=== PATIENT | female | born 1980 ===

== ENCOUNTER 2017-05-05 20:07 | Emergency (ER) | payer BC, OTHER ==
[2017-05-05 20:36] VITALS: RESP 20
--- NOTE | 2017-05-05 21:02 | C.PDOC ---
History Of Present Illness 37 year old female presents to the ED with complaints of suprapubic pain beginning Tuesday. Patient notes associated symptoms of nausea, hematuria, dysuria, and frequent urination. She states she has had a tubal ligation and history of Diabetes but is not taking medication. Patient denies fever or vomiting. States symptoms similar to previous UTIs. Time Seen by Provider: 05/05/17 20:39 Chief Complaint (Nursing): Abdominal Pain History Per: Patient History/Exam Limitations: no limitations Onset/Duration Of Symptoms: Days (6 days ago on Tuesday) Current Symptoms Are (Timing): Still Present Location Of Pain/Discomfort: Suprapubic Associated Symptoms: Chills, Nausea, Back Pain, Urinary Symptoms. denies: Fever , Vomiting, Diarrhea Recent travel outside of the [place]: No Past Medical History Reviewed: Historical Data, Nursing Documentation, Vital Signs Vital Signs: Last Vital Signs Temp 98.2 F 05/05/17 22:14 Pulse 83 05/05/17 22:14 Resp 20 05/05/17 22:14 BP 120/83 05/05/17 22:14 Pulse Ox 97 05/05/17 22:14 Family History: States: Unknown Family Hx - Social History Hx Alcohol Use: No Hx Substance Use: No - Immunization History Hx Tetanus Toxoid Vaccination: No Hx Influenza Vaccination: No Review Of Systems Review Of Systems: ROS cannot be obtained secondary to pt's inabilty to answer questions. Constitutional: Negative for: Fever Respiratory: Negative for: Shortness of Breath Physical Exam - Physical Exam Additional Physical Exam Comments: Constitutional: No acute distress. Head: Normocephalic. Atraumatic. Eyes: PERRL. ENT: Moist mucous membranes. Neck: Supple. Cardiovascular: Regular rate. Radial pulse 2+ bilaterally. Chest: No tenderness. Respiratory: Clear to auscultation bilaterally. GI: Soft. Suprapubic tenderness. Nondistended. Back: Left CVA tenderness. Musculoskeletal: No tenderness or swelling of extremities. Skin: No rash. Neurologic: Alert, no focal deficit. ED Course And Treatment O2 Sat by Pulse Oximetry: 99 (room air ) Medical Decision Making Medical Decision Making: Vital signs normal. UTI on UA. Culture sent. Cipro and pyridium administered. Discharged home, f/u PMD, instructed to return for fever, vomiting, worsening pain, palpitations. Disposition - Disposition Disposition: HOME/ ROUTINE Disposition Time: 22:00 Condition: STABLE Prescriptions: Ciprofloxacin [Cipro] 500 mg PO BID #14 tab Phenazopyridine [Pyridium] 1 tab PO Q8 #6 tab Instructions: Urinary Tract Infection in Women (ED) - Clinical Impression Clinical Impression: UTI (urinary tract infection) - Scribe Statement The provider has reviewed the documentation as recorded by the Trentibcarisa Nayak All medical record entries made by the Stephen were at my direction and personally dictated by me. I have reviewed the chart and agree that the record accurately reflects my personal performance of the history, physical exam, medical decision making, and the department course for this patient. I have also personally directed, reviewed, and agree with the discharge instructions and disposition.
[2017-05-05 21:34] LABS: RBC URINE 6 /hpf (0-3); URINE BACTERIA MANY (<OCC); URINE BILIRUBIN NEGATIVE (NEGATIVE); URINE COLOR Yellow (YELLOW); URINE GLUCOSE (UA) 3+ mg/dL (Normal); URINE KETONE NEGATIVE (NEGATIVE); URINE LEUKOCYTE ESTERASE 3+ Leu/uL (Negative); URINE PROTEIN 1+ mg/dL (NEGATIVE); URINE UROBILINOGEN NORMAL mg/dL (0.2-1.0); WBC CLUMPS FEW /hpf; WBC URINE 362 /hpf (0-5)
[2017-05-05 21:49] LABS: URINE BLOOD 1+ (NEGATIVE)
[2017-05-05 22:15] VITALS: BP 120/83; PULSE 83; TEMP 98.2
[2017-05-05 22:40] VITALS: O2SAT 99
== END 2017-05-05 22:40 | disposition home or self-care (01) ==
LOC: C.ER 20:07
DX: N39.0 Urinary tract infection, site not specified (principal)

== ENCOUNTER 2017-07-24 11:52 | Emergency (ER) | payer BC, OTHER ==
--- NOTE | 2017-07-24 13:14 | C.PDOC ---
History Of Present Illness 37y/o female presents to the ED for evaluation of constant, atraumatic right breast pain for the past 3 days. Patient reports she has been taking Tylenol and Excedrin for pain with no relief. She denies breast feeding and states her LMP ended 2 days ago. She denies any associated fever or chills and at present offers no additional medical complaints. Time Seen by Provider: 07/24/17 12:40 Chief Complaint (Nursing): Breast Problem History Per: Patient History/Exam Limitations: no limitations Onset/Duration Of Symptoms: Days (2) Current Symptoms Are (Timing): Still Present Severity: Moderate Recent travel outside of the [place]: No Additional History Per: Patient Past Medical History Reviewed: Historical Data, Nursing Documentation, Vital Signs Vital Signs: Last Vital Signs Temp 97.8 F 07/24/17 14:39 Pulse 88 07/24/17 14:39 Resp 20 07/24/17 14:39 BP 125/86 07/24/17 14:39 Pulse Ox 97 07/24/17 17:44 - Medical History PMH: Diabetes Surgical History: No Surg Hx Family History: States: Unknown Family Hx, Other Other Family History: Patient's aunt had mastectomy - Social History Hx Alcohol Use: No Hx Substance Use: No - Immunization History Hx Tetanus Toxoid Vaccination: No Hx Influenza Vaccination: No Hx Pneumococcal Vaccination: No Review Of Systems Constitutional: Negative for: Fever, Chills Cardiovascular: Positive for: Other (right breast pain) Physical Exam - Physical Exam Additional Physical Exam Comments: Constitutional: No acute distress. WDWN. Head: Normocephalic. Atraumatic. Cardiovascular: Regular rate and rhythm. Chest: No tenderness. Right breast left upper quadrant (10:00 region) with firm mass noted. No redness, swelling or warmth to breast. No nipple discharge or discoloration. Respiratory: Clear to auscultation bilaterally. Musculoskeletal: No tenderness or swelling of extremities. No adenopathy noted in right axilla. Skin: No rash. Neurologic: Alert, no focal deficit. ED Course And Treatment O2 Sat by Pulse Oximetry: 97 - CT Scan/US US Right Breast CT/US Interpretation: US Impression: At the 10:00 region, 3cm from nipple there is a hypoechoic 6x4x4 mm complex mass. Diagnostic mammogram recommended. Medical Decision Making Medical Decision Making: Impression: 37y/o female, not breast feeding, with right breast pain unrelieved with use of Tylenol and Excedrin for the past 3 days. Impression: -- US right breast -- POC UPreg 1323 -- UPreg negative; Motrin 600 mg PO ordered. Disposition Counseled Patient/Family Regarding: Studies Performed, Diagnosis, Need For Followup - Disposition Referrals: Margie Ash MD [Staff Provider] - Disposition: HOME/ ROUTINE Disposition Time: 17:54 Condition: STABLE Additional Instructions: Follow up with Dr Ash and your dental nurse as soon as possible. Recommend that you get a mammogram to evaluate breast mass. Return to ER for any worsening symptoms. Take Tylenol or Motrin for pain. 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 - Scribe Statement The provider has reviewed the documentation as recorded by the Scribe Sobia Frazier All medical record entries made by the Scribe were at my direction and personally dictated by me. I have reviewed the chart and agree that the record accurately reflects my personal performance of the history, physical exam, medical decision making, and the department course for this patient. I have also personally directed, reviewed, and agree with the discharge instructions and disposition.
[2017-07-24 18:05] VITALS: BP 129/89; PULSE 83; RESP 18; TEMP 98.5
[2017-07-25 09:41] VITALS: O2SAT 97
--- NOTE | 2017-07-25 09:59 | US ---
HISTORY: 37Y old female with history of left breast tender palpable abnormality. COMPARISON: None available. TECHNIQUE: BREAST UNILATERAL RIGHT Title of breasts was performed all 4 quadrants including retroareolar acted tail components is history of palpable abnormality at the left 10 o'clock position approximately. FINDINGS: LEFT BREAST: There is a hypoechoic nodular focus with echogenic core and hypoechoic periphery E with no posterior acoustic shadowing associated at the 10 o'clock radius identified at the site of the patient's palpable abnormality, measuring 0.4 x 0.4 x 0.6 cm. Is aligned parallel to the plane of the skin and exhibits limited posterior acoustic enhancement rather than shadowing. No additional findings seen throughout the remaining quadrants of the right breast including retroareolar space. This may represent a benign intramammary lymph node typically given its echogenic core. It is avascular on color per ultrasound however. Correlation with mammography is advised including bilateral screening technique the patient has not been screened within the past year with added left lateral medial and possible spot compression mammography. Mildly enlarged left axilla lymph nodes identified measure 1.4 by 0.7 cm. IMPRESSION: A 0.6 cm nodular focus is identified at the left 10 o'clock radius 3 cm from the nipple potentially representing a and benign intrarenal lymph node. Follow-up mammography is advised as discussed above for further characterization as this is an indeterminate finding nevertheless. Please see discussion above. Concordant V rad report dated 07/24/2017. BIRAD: BIRADS 0 Incomplete - Need additional imaging evaluation and/or prior mammograms for comparison Recommendation: Recall for additional imaging and/or comparison with prior examination, as described above. Patient will be contacted.
== END 2017-07-24 18:04 | disposition home or self-care (01) ==
LOC: C.ER 11:52
DX: N64.4 Mastodynia (principal); N63 Unspecified lump in breast

== ENCOUNTER 2017-10-19 08:51 | Emergency (ER) | payer BC, OTHER ==
[2017-10-19 09:09] VITALS: RESP 18; O2SAT 98
[2017-10-19 09:18] VITALS: BP 120/84; PULSE 90; TEMP 98.2
--- NOTE | 2017-10-19 09:30 | C.PDOC ---
History Of Present Illness Lory Nowak is a 37 y/o female who presents complaining of urticarial rash to the forehead, face, and neck, onset 5 days ago. Mild pruritus noted. She uses the same hair dye as in the past, and denies using any new products. Taking Claritin without improvement. No fevers, chills, nausea, vomiting, or respiratory complaints. PMD: Dr. Kaylynn Melton MD Time Seen by Provider: 10/19/17 09:22 Chief Complaint (Nursing): Allergic Reaction History Per: Patient History/Exam Limitations: no limitations Onset/Duration Of Symptoms: Days (x 5) Current Symptoms Are (Timing): Still Present Associated Symptoms: Skin Rash Past Medical History Reviewed: Historical Data, Nursing Documentation, Vital Signs Vital Signs: Last Vital Signs Temp 98.2 F 10/19/17 09:17 Pulse 90 10/19/17 09:17 Resp 18 10/19/17 09:17 BP 120/84 10/19/17 09:17 Pulse Ox 98 10/19/17 15:35 - Medical History PMH: Diabetes Surgical History: Other Surgeries: Tubal ligation Family History: States: Unknown Family Hx - Social History Hx Alcohol Use: No Hx Substance Use: No - Immunization History Hx Tetanus Toxoid Vaccination: No Hx Influenza Vaccination: No Hx Pneumococcal Vaccination: No Review Of Systems Except As Marked, All Systems Reviewed And Found Negative. Constitutional: Negative for: Fever, Chills Respiratory: Negative for: Shortness of Breath Gastrointestinal: Negative for: Nausea, Vomiting Skin: Positive for: Rash (to face, forehead, neck) Physical Exam - Physical Exam Appears: Non-toxic, No Acute Distress Skin: Rash (Urticarial rash noted to forehead, face, and neck) Head: Atraumatic, Normacephalic Eye(s): bilateral: Normal Inspection, PERRL, EOMI Neck: Normal, Supple Cardiovascular: Rhythm Regular, No Murmur Respiratory: Normal Breath Sounds, No Accessory Muscle Use Neurological/Psych: Oriented x3, Normal Speech ED Course And Treatment O2 Sat by Pulse Oximetry: 98 (RA) Pulse Ox Interpretation: Normal Medical Decision Making Medical Decision Making: Time: 9:32 Clinical Impression: Allergic urticaria Plan: Patient is medically stable. Will d/c with Rx for Benadryl and prednisone. Patient is to follow up with PMD for further assessment. There is agreement to discharge plan. Return to ER if symptoms worsen or acute changes develop. Disposition Counseled Patient/Family Regarding: Diagnosis, Need For Followup, Rx Given - Disposition Referrals: Kaylynn Melton MD [Staff Provider] - Disposition: HOME/ ROUTINE Disposition Time: 09:30 Condition: STABLE Prescriptions: DiphenhydrAMINE [Benadryl] 50 mg PO TID #15 cap predniSONE [predniSONE Tab] 60 mg PO DAILY #15 tab Instructions: General Allergic Reaction (ED) Forms: General Discharge Instructions, [facility] (Telugu), Work Excuse - POA Present On Arrival: None - Clinical Impression Clinical Impression: Allergic urticaria - Scribe Statement The provider has reviewed the documentation as recorded by the Scribe (Azalea Maravilla) All medical record entries made by the Scribe were at my direction and personally dictated by me. I have reviewed the chart and agree that the record accurately reflects my personal performance of the history, physical exam, medical decision making, and the department course for this patient. I have also personally directed, reviewed, and agree with the discharge instructions and disposition.
== END 2017-10-19 09:55 | disposition home or self-care (01) ==
LOC: C.ER 08:51
DX: L50.0 Allergic urticaria (principal)

== ENCOUNTER 2017-12-06 09:01 | Emergency (ER) | payer BC, OTHER ==
[2017-12-06 09:14] VITALS: RESP 18
--- NOTE | 2017-12-06 09:36 | C.PDOC ---
History Of Present Illness R BUTTOCK ABSCESS SINCE YEST. HO DM, PS HO PRIOR SIM SX BUT IN DIFFERENT LOCATION. +REDNESS, PAIN, SWELLING. +SUBJ FEVER. SP EXCEDRIN @ 0330 EXAM MILD DIST NONTOXIC SKIN +DIFFUSE FIRM INDURATED AREA BOTTOM R BUTTOCK W DIFFUSE TEND. IN TACT. _ ERYTHEMA CV RRR SINUS TACH REMAINDER NEG Time Seen by Provider: 12/06/17 09:32 Chief Complaint (Nursing): Abnormal Skin Integrity History Per: Patient History/Exam Limitations: no limitations Onset/Duration Of Symptoms: Days (1 day) Current Symptoms Are (Timing): Still Present Past Medical History Reviewed: Historical Data, Nursing Documentation, Vital Signs Vital Signs: Last Vital Signs Temp 99.2 F 12/06/17 13:10 Pulse 97 H 12/06/17 13:10 Resp 18 12/06/17 13:10 BP 102/67 12/06/17 13:10 Pulse Ox 97 12/06/17 13:10 - Medical History PMH: Diabetes Surgical History: Family History: States: No Known Family Hx - Social History Hx Alcohol Use: No Hx Substance Use: No - Immunization History Hx Tetanus Toxoid Vaccination: No Hx Influenza Vaccination: No Hx Pneumococcal Vaccination: No Review Of Systems Except As Marked, All Systems Reviewed And Found Negative. Constitutional: Positive for: Fever (subjective) Musculoskeletal: Negative for: Back Pain, Leg Pain Skin: Positive for: Other ((+) abscess on the right buttock with redness and swelling) Neurological: Negative for: Weakness, Numbness Physical Exam - Physical Exam Appears: Non-toxic, In Acute Distress (Mild) Skin: Warm, Dry, No Rash, Other ((+) Diffuse, firm, indurated are martha the bottom right buttock with diffuse tenderness, intact) Oral Mucosa: Moist Cardiovascular: Rhythm Regular, Other ((+) sinus tach) Respiratory: Normal Breath Sounds, No Rales, No Wheezing Back: Normal Inspection, No CVA Tenderness Extremity: Normal ROM, No Swelling Neurological/Psych: Oriented x3, Normal Speech, Normal Motor, Normal Sensation Gait: Steady ED Course And Treatment - Laboratory Results Result Diagrams: 12/06/17 10:06 12/06/17 10:06 O2 Sat by Pulse Oximetry: 99 (RA) Pulse Ox Interpretation: Normal - CT Scan/US CT - Pelvis w/ IV Contrast Other Rad Studies (CT/US): Read By Radiologist, Radiology Report Reviewed CT/US Interpretation: PROCEDURE: CT Pelvis with contrast. HISTORY: R BUTTOCK SWELL RED RO ABSCESS. COMPARISON: None. TECHNIQUE: Contiguous axial images of the pelvis with contrast. Coronal and sagittal reformats generated. Contrast dose: 100 mL Visipaque 320. Radiation dose: Total exam DLP = 709 mGy- cm. This CT exam was performed using one or more of the following dose reduction techniques: Automated exposure control, adjustment of the mA and/or kV according to patient size, and/or use of iterative reconstruction technique. FINDINGS: BLADDER: Unremarkable. No mass. REPRODUCTIVE ORGANS: Unremarkable. VISUALIZED BOWEL: Unremarkable. PERITONEUM: Unremarkable, as visualized. No free fluid. No free air. LYMPH NODES: no enlarged intra pelvic lymph nodes. VASCULATURE: Unremarkable. BONES: No fracture or focal lytic lesion. Lumbosacral level transitional elements suggested. 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 OTHER FINDINGS: In the inferior right gluteal soft tissues, asymmetrical right dermal thickening with diffuse right subcutaneous fat amorphous inflammatory/edema changes are present. A few sub cm subdermal nodular opacities here are noted - tiny subdermal inflammatory nodules / subdermal lymph nodes are some considerations. No drainable abscess here suggested. No find focal collection greater than 1 cm in size noted. IMPRESSION : Inferior right buttock dermal and diffuse extensive reticular and amorphous subcutaneous inflammatory changes. No drainable or discrete abscess suggested. No fistula or gross sinus tract appreciated. The few sub cm subdermal nodules noted are consistent with nonspecific inflammatory nodules and/or subdermal lymph nodes. No drainable. collection here identified . Progress - Re-Evaluation Re-evaluation Note: 12/06/17 13:[address] RESULTS REVIEWED. PS CURRENTLY NOT ON REGULAR DM MEDS. HO GESTATION DM. 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 ABX - Data Reviewed Data Reviewed: Lab, Diagnostic imaging, Old records Medical Decision Making Medical Decision Making: PLAN: * CT - Pelvis w/ IV Contrast * Labs * POC * Toradol IVP Disposition Counseled Patient/Family Regarding: Studies Performed, Diagnosis, Need For Followup, Rx Given - Disposition Referrals: YOUR,PMD [Other] Disposition: HOME/ ROUTINE Disposition Time: 13:21 Condition: IMPROVED Prescriptions: Acetaminophen with Codeine [Tylenol with Codeine No. 3 300 mg-30 mg] 1 tab PO Q6 PRN #12 tab PRN Reason: Pain, Moderate (4-7) Amoxicillin/Clavulanate [Augmentin 875 MG-125 MG] 1 tab PO BID #14 tab Ibuprofen [Motrin] 600 mg PO Q6 #30 tab metFORMIN [glucOPHAGE] 500 mg PO BID #28 tab Instructions: Cellulitis (ED), Diabetes Mellitus Type 2 in Adults (ED) Forms: [facility] (Yemeni) - Clinical Impression Clinical Impression: Cellulitis, Uncontrolled diabetes mellitus - Scribe Statement The provider has reviewed the documentation as recorded by the Stephen Gan Provider Attestation: All medical record entries made by the Stephen were at my direction and personally dictated by me. I have reviewed the chart and agree that the record accurately reflects my personal performance of the history, physical exam, medical decision making, and the department course for this patient. I have also personally directed, reviewed, and agree with the discharge instructions and disposition.
[2017-12-06 10:16] LABS: BASO # 0.1 K/uL (0.0-0.2); EOS % 0.4 % (0.0-4.0); LYMPH # 1.7 K/uL (1.0-4.3); LYMPH % 13.7 % (20.0-40.0); MEAN CELL VOLUME 82.7 fL (81.0-99.0); MEAN CORPUSCULAR HGB CONC 35.1 g/dL (33.0-37.0); MEAN PLATELET VOLUME 8.8 fL (7.2-11.7); MONO # 0.8 K/uL (0.0-0.8); MONO % 5.9 % (0.0-10.0); NEUT # 10.1 K/uL (1.8-7.0); RBC 4.48 Mil/uL (3.80-5.20); RED CELL DISTRIBUTION WIDTH 12.4 % (11.5-14.5); WHITE BLOOD COUNT 12.8 K/uL (4.8-10.8)
[2017-12-06 10:31] LABS: BLOOD UREA NITROGEN 8 mg/dL (7-17); CALCIUM 9.3 mg/dl (8.6-10.4); GFR AFRICAN-AMERICAN > 60; GFR NON-AFRICAN AMERICAN > 60
[2017-12-06] MEDS ORDERED: Iodixanol 320 MG/ML 100 ML BOTTLE IV ONE (10:50)
--- NOTE | 2017-12-06 12:55 | CT ---
PROCEDURE: CT Pelvis with contrast HISTORY: R BUTTOCK SWELL RED RO ABSCESS COMPARISON: None. TECHNIQUE: Contiguous axial images of the pelvis with contrast. Coronal and sagittal reformats generated. Contrast dose: 100 mL Visipaque 320 Radiation dose: Total exam DLP = 709 mGy-cm. This CT exam was performed using one or more of the following dose reduction techniques: Automated exposure control, adjustment of the mA and/or kV according to patient size, and/or use of iterative reconstruction technique. FINDINGS: BLADDER: Unremarkable. No mass. REPRODUCTIVE ORGANS: Unremarkable. VISUALIZED BOWEL: Unremarkable. PERITONEUM: Unremarkable, as visualized. No free fluid. No free air. LYMPH NODES: no enlarged intra pelvic lymph nodes. VASCULATURE: Unremarkable. BONES: No fracture or focal lytic lesion. Lumbosacral level transitional elements suggested. 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 A few sub cm subdermal nodular opacities here are noted - tiny subdermal inflammatory nodules /subdermal lymph nodes are some considerations. No drainable abscess here suggested. No find focal collection greater than 1 cm in size noted. IMPRESSION: Inferior right buttock dermal and diffuse extensive reticular and amorphous subcutaneous inflammatory changes. No drainable or discrete abscess suggested. No fistula or gross sinus tract appreciated. The few sub cm subdermal nodules noted are consistent with nonspecific inflammatory nodules and/or subdermal lymph nodes. No drainable collection here identified .
[2017-12-06] MEDS ORDERED: Amoxicillin-Clav 875-125 mg Tab PO STA (13:20)
[2017-12-06 13:23] VITALS: O2SAT 99
[2017-12-06 13:24] VITALS: BP 114/75; PULSE 98; TEMP 98.5
[2017-12-06] MEDS ORDERED: Amoxicillin-Clav 875-125 mg Tab PO ONE (13:24)
== END 2017-12-06 13:33 | disposition home or self-care (01) ==
LOC: C.ER 09:01
DX: L03.317 Cellulitis of buttock (principal); E11.65 Type 2 diabetes mellitus with hyperglycemia
CPT/HCPCS: 72193; 80048; 85025; 96374; 99285; J1885; Q9967

== ENCOUNTER 2017-12-10 22:10 | Emergency (ER) | payer BC, OTHER ==
[2017-12-10 22:33] VITALS: BMI 29.1
[2017-12-10 22:37] VITALS: RESP 18; TEMP 99.3; O2SAT 100
--- NOTE | 2017-12-10 23:05 | C.PDOC ---
History Of Present Illness Patient complains of pain, itching and swelling to right buttocks for 4 days. Patient states she was seen in ED 4 days ago and is taking antibiotics. She states she squeezed the area yesterday and it started draining. Denies any fever , area is still painful. Time Seen by Provider: 12/10/17 22:46 Chief Complaint (Nursing): Abnormal Skin Integrity History Per: Patient History/Exam Limitations: no limitations Onset/Duration Of Symptoms: Days (4) Current Symptoms Are (Timing): Still Present Past Medical History Reviewed: Historical Data, Nursing Documentation, Vital Signs Vital Signs: Last Vital Signs Temp 99.3 F 12/10/17 22:33 Pulse 93 H 12/10/17 22:33 Resp 18 12/10/17 22:33 BP 154/82 H 12/10/17 22:33 Pulse Ox 100 12/10/17 23:05 - Medical History PMH: Diabetes Surgical History: Family History: States: Unknown Family Hx - Social History Hx Alcohol Use: No Hx Substance Use: No - Immunization History Hx Tetanus Toxoid Vaccination: No Hx Influenza Vaccination: No Hx Pneumococcal Vaccination: No Review Of Systems Except As Marked, All Systems Reviewed And Found Negative. Skin: Positive for: Other (buttock abscess) Physical Exam - Physical Exam Appears: Well, Non-toxic, No Acute Distress Skin: Warm, Dry, Other (right inner buttocks with erythematous tender indurated mass with slight fluctuant center and mild purulent drainage noted ) Head: Atraumatic, Normacephalic Eye(s): bilateral: Normal Inspection, EOMI Neck: Normal ROM Chest: Symmetrical Extremity: Bilateral: Atraumatic, Normal ROM Neurological/Psych: Oriented x3, Normal Speech ED Course And Treatment O2 Sat by Pulse Oximetry: 100 Medical Decision Making Medical Decision Making: Patient with abscess to right buttock which is actively draining. Offer to make larger incision and drain. She declines. Area cleansed and dressing applied. Patient advised to continue and finish antibiotics Disposition Counseled Patient/Family Regarding: Diagnosis, Need For Followup, Rx Given - Disposition Referrals: Kaylynn Melton MD [Staff Provider] - Disposition: HOME/ ROUTINE Disposition Time: 23:01 Condition: STABLE Additional Instructions: Continue with antibiotics and take pain medicine as needed try sitz baths and applying warm compress to area and it will continue to drain Instructions: Abscess (GEN) Forms: [facility] (German) - POA Present On Arrival: None - Clinical Impression Clinical Impression: Abscess of buttock, right
[2017-12-10 23:35] VITALS: BP 149/89; PULSE 89
== END 2017-12-10 23:35 | disposition home or self-care (01) ==
LOC: C.ER 22:10
DX: L02.31 Cutaneous abscess of buttock (principal)

== ENCOUNTER 2017-12-17 11:25 | Observation (INO) | payer BC, OTHER ==
[2017-12-17 11:25] VITALS: BMI 29.1
[2017-12-17] MEDS ORDERED: HYDROmorphone 0.5 mg/0.5 ml ISec IM STA (11:50)
--- NOTE | 2017-12-17 11:52 | C.PDOC ---
History Of Present Illness WORSENING L BUTTOCK PAIN, SWELLING DC. SEEN ON 12/07 AND 12/10 FOR SAME, S/P CT AND ABX. NO FEVER. INCR PAIN, NO IMPROVE W PAIN MEDS. COMPLETED ABX PRESCRIBED. EXAM MOD DIST NONTOXIC SKIN +SWELLING, REDNESS TEND L BUTTOCK INCR COMPARED TO INITIAL EVAL 12/07; + SEROPURULENT DC W SMALL DRAINING HOLE REMAINDER NEG Time Seen by Provider: 12/17/17 11:49 Chief Complaint (Nursing): Abnormal Skin Integrity History Per: Patient History/Exam Limitations: no limitations Onset/Duration Of Symptoms: Days Past Medical History Reviewed: Historical Data, Nursing Documentation, Vital Signs Vital Signs: Last Vital Signs Temp 98.9 F 12/17/17 11:36 Pulse 143 H 12/17/17 11:36 Resp 22 12/17/17 11:36 BP 161/98 H 12/17/17 11:36 Pulse Ox 100 12/17/17 12:01 - Medical History PMH: Diabetes Surgical History: Family History: States: No Known Family Hx - Social History Hx Alcohol Use: No Hx Substance Use: No - Immunization History Hx Tetanus Toxoid Vaccination: No Hx Influenza Vaccination: No Hx Pneumococcal Vaccination: No Review Of Systems Except As Marked, All Systems Reviewed And Found Negative. Constitutional: Negative for: Fever, Chills Cardiovascular: Negative for: Chest Pain Respiratory: Negative for: Shortness of Breath Musculoskeletal: Positive for: Other ((+) left buttock pain, swelling and dischagre). Negative for: Leg Pain Neurological: Negative for: Weakness, Numbness Physical Exam - Physical Exam Appears: Non-toxic, In Acute Distress (moderate) Skin: Warm, Dry, Other ((+) swelling, redness and tenderness to the left buttock increasing compared to initial evaluation on 12/07, +seropurulent dischagre with small draining hole) Oral Mucosa: Moist Respiratory: Normal Breath Sounds, No Rales, No Rhonchi, No Stridor, No Wheezing Extremity: Normal ROM, No Swelling Neurological/Psych: Oriented x3, Normal Speech, Normal Sensation ED Course And Treatment O2 Sat by Pulse Oximetry: 100 (RA) Pulse Ox Interpretation: Normal Progress - Re-Evaluation Re-evaluation Note: 12/17/17 11:55 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 - Data Reviewed Data Reviewed: Lab, Old records Medical Decision Making Medical Decision Making: PLAN: * EKG * HCG * Labs * Zofran PO * Dilaudid IM * Avelox IVPB * Sodium Chloride IV Disposition Counseled Patient/Family Regarding: Studies Performed, Diagnosis - Disposition Disposition: HOSPITALIZED Disposition Time: 11:59 Condition: STABLE Forms: [facility] (Greenlandic) - POA Present On Arrival: Poor Glycemic Control - Clinical Impression Clinical Impression: Abscess of buttock, Cellulitis, Hyperglycemia - Scribe Statement The provider has reviewed the documentation as recorded by the Stephen Gan Provider Attestation: All medical record entries made by the Stephen were at my direction and personally dictated by me. I have reviewed the chart and agree that the record accurately reflects my personal performance of the history, physical exam, medical decision making, and the department course for this patient. I have also personally directed, reviewed, and agree with the discharge instructions and disposition. Decision To Admit - Pt Status Changed To: Hospital Disposition Of: Observation - . Bed Request Type: Regular Admitting Physician: Margie Ash Patient Diagnosis: Abscess of buttock, Cellulitis, Hyperglycemia
[2017-12-17] MEDS ORDERED: HYDROmorphone 0.5 mg/0.5 ml ISec ONE (11:54)
[2017-12-17] MEDS ORDERED: Sodium Chloride 0.9% 1,000 ML IV ONE (12:02)
[2017-12-17] MEDS ORDERED: Moxifloxacin IV 400mg/250ml NS 400 MG/250 ML BAG IVPB ONE ×2 (12:03→12:15)
[2017-12-17 12:20] LABS: BASO # 0.2 K/uL (0.0-0.2); EOS # 0.1 K/uL (0.0-0.7); EOS % 0.6 % (0.0-4.0); HEMOGLOBIN 12.6 g/dL (11.0-16.0); LYMPH # 2.5 K/uL (1.0-4.3); LYMPH % 12.7 % (20.0-40.0); MEAN CELL VOLUME 82.7 fL (81.0-99.0); MEAN CORPUSCULAR HEMOGLOBIN 28.5 pg (27.0-31.0); MEAN CORPUSCULAR HGB CONC 34.5 g/dL (33.0-37.0); MEAN PLATELET VOLUME 7.6 fL (7.2-11.7); MONO # 1.3 K/uL (0.0-0.8); MONO % 6.4 % (0.0-10.0); NEUT # 15.8 K/uL (1.8-7.0); NEUT % 79.3 % (50.0-75.0); RBC 4.43 Mil/uL (3.80-5.20)
[2017-12-17 12:28] LABS: BLOOD UREA NITROGEN 8 mg/dL (7-17); CALCIUM 9.8 mg/dl (8.6-10.4); GFR AFRICAN-AMERICAN > 60; GFR NON-AFRICAN AMERICAN > 60; INR 1.2; PROTHROMBIN TIME 14.2 SECONDS (9.7-12.2)
[2017-12-17] MEDS ORDERED: (Novolin R) Insulin Human Regular 100 units/ml vial IV STA (12:40)
[2017-12-17] MEDS ORDERED: (Novolin R) Insulin Human Regular 100 units/ml vial ONE ×2 (12:54→17:19)
[2017-12-17] MEDS ORDERED: Midazolam 2 MG/2 ML VIAL ONE (13:51)
[2017-12-17] MEDS ORDERED: Propofol 10 mg/ml Inj (20 ML) ONE ×2 (13:51→14:29)
--- NOTE | 2017-12-17 14:09 | CP.PCM.HP ---
History of Present Illness - History of Present Illness History of Present Illness: Patient seen x 3 in ER for progressive R buttock swelling. CT scan done initially indicated cellulitis, patient now noting drainage and increased swelling. Present on Admission - Present on Admission Any Indicators Present on Admission: Yes History of DVT/PE: No History of Uncontrolled Diabetes: Yes Urinary Catheter: No Decubitus Ulcer Present: No - Notes: Notes:: Glucose 335 in ER Review of Systems - Review of Systems All systems: reviewed and no additional remarkable complaints except - Constitutional Constitutional: Chills, Fever Past Patient History - Infectious Disease Hx of Infectious Diseases: None - Tetanus Immunizations Tetanus Immunization: Unknown - Past Medical History & Family History Past Family History: Reviewed and not pertinent - Past Social History Smoking Status: Never Smoked - CARDIAC Hx Cardiac Disorders: No - PULMONARY Hx Respiratory Disorders: No - NEUROLOGICAL Hx Neurological Disorder: No - ENDOCRINE/METABOLIC Hx Endocrine Disorders: Yes Hx Diabetes Mellitus Type 2: Yes (On Metformin, ?complicance) - GASTROINTESTINAL Hx Gastrointestinal Disorders: No - GENITOURINARY/GYNECOLOGICAL Hx Genitourinary Disorders: No - PSYCHIATRIC Hx Psychophysiologic Disorder: No Hx Substance Use: No - SURGICAL HISTORY Hx Surgeries: Yes Hx Section: Yes (x3) Hx Herniorrhaphy: Yes Hx Tubal Ligation: Yes - ANESTHESIA Hx Anesthesia: Yes Hx Anesthesia Reactions: No Hx Malignant Hyperthermia: No Meds Allergies/Adverse Reactions: Allergies Allergy/AdvReac Type Severity Reaction Status Date / Time No Known Allergies Allergy Verified 12/17/17 11:38 Physical Exam - Head Exam Head Exam: NORMAL INSPECTION - Eye Exam Eye Exam: PERRL Pupil Exam: NORMAL ACCOMODATION - ENT Exam ENT Exam: Mucous Membranes Moist - Neck Exam Neck exam: Positive for: Full Rom. Negative for: Lymphadenopathy - Respiratory Exam Respiratory Exam: NORMAL BREATHING PATTERN - Cardiovascular Exam Cardiovascular Exam: REGULAR RHYTHM - GI/Abdominal Exam GI & Abdominal Exam: Normal Bowel Sounds. absent: Distended - Rectal Exam Additional comments: R buttock swollen with purulent drainage from sinus openings. - Extremities Exam Extremities exam: Positive for: normal inspection - Back Exam Back exam: NORMAL INSPECTION - Neurological Exam Neurological exam: Alert, Oriented x3 - Psychiatric Exam Psychiatric exam: Normal Affect, Normal Mood Results - Vital Signs Recent Vital Signs: Last Vital Signs Temp 99.9 F H 12/17/17 13:37 Pulse 100 H 12/17/17 13:37 Resp 16 12/17/17 13:37 BP 145/82 12/17/17 13:37 Pulse Ox 100 12/17/17 13:37 - Labs Result Diagrams: 12/17/17 12:13 12/17/17 12:13 Labs: Laboratory Results - last 24 hr 12/17/17 12/17/17 12/17/17 12:03 12:13 12:13 WBC 20.0 H D RBC 4.43 Hgb 12.6 Hct 36.6 MCV 82.7 MCH 28.5 MCHC 34.5 RDW 12.0 Plt Count 554 H D MPV 7.6 Neut % (Auto) 79.3 H Lymph % (Auto) 12.7 L Esmeralda % (Auto) 6.4 Eos % (Auto) 0.6 Baso % (Auto) 1.0 Neut # (Auto) 15.8 H Lymph # (Auto) 2.5 Esmeralda # (Auto) 1.3 H Eos # (Auto) 0.1 Baso # (Auto) 0.2 PT INR APTT Sodium 135 Potassium 4.1 Chloride 95 L Carbon Dioxide 19 L Anion Gap 24 H BUN 8 Creatinine 0.5 L Est GFR ( Amer) > 60 Est GFR (Non-Af Amer) > 60 POC Glucose (mg/dL) Random Glucose 335 H Calcium 9.8 Urine HCG, Qual Negative Blood Type Antibody Screen 12/17/17 12/17/17 12/17/17 12:13 12:13 14:02 WBC RBC Hgb Hct MCV MCH MCHC RDW Plt Count MPV Neut % (Auto) Lymph % (Auto) Esmeralda % (Auto) Eos % (Auto) Baso % (Auto) Neut # (Auto) Lymph # (Auto) Esmeralda # (Auto) Eos # (Auto) Baso # (Auto) PT 14.2 H INR 1.2 APTT 28 Sodium Potassium Chloride Carbon Dioxide Anion Gap BUN Creatinine Est GFR ( Amer) Est GFR (Non-Af Amer) POC Glucose (mg/dL) 193 H Random Glucose Calcium Urine HCG, Qual Blood Type A POSITIVE Antibody Screen Negative Assessment & Plan (1) Abscess of buttock, right Status: Acute Onset Date: ~12/08/17 Comment: Progresssive, now with localized fluctuance and swelling. For surgical incision and drainage. (2) Diabetes 1.5, managed as type 2 Status: Chronic Priority: Medium Comment: Continue home medications, monitor blood sugar. Elevation due to infection - Date & Time Date: 12/17/17 Time: 14:16
--- NOTE | 2017-12-17 15:14 | PCM.SURG1 ---
Surgeon's Initial Post Op Note - Surgeon's Notes Surgeon: Kymberly Ash Statistical Assistant: none Type of Anesthesia: General LMA Anesthesia Administered By: Epi Pre-Operative Diagnosis: R buttock abscess Operative Findings: localized abscesss R buttock with surrounding induration Post-Operative Diagnosis: R buttock abscess Operation Performed: incision and drainage of R buttock Specimen/Specimens Removed: none Estimated Blood Loss: EBL {In ML}: 10 Blood Products Given: N/A Drains Used: No Drains Post-Op Condition: Good Date of Surgery/Procedure: 12/17/17 Time of Surgery/Procedure: 15:14
[2017-12-17] MEDS ORDERED: Moxifloxacin IV 400mg/250ml NS 400 MG/250 ML BAG IVPB SCH (16:30)
[2017-12-17] MEDS: Oxycodone/Acetaminophen 5/325 mg Tab PO PRN (20:22)
[2017-12-18] MEDS: Oxycodone/Acetaminophen 5/325 mg Tab PO PRN ×5 (00:53→21:29)
--- NOTE | 2017-12-18 02:58 | OP ---
PROCEDURE DATE: 12/17/2017 PREOPERATIVE DIAGNOSIS: Right buttock abscess. POSTOPERATIVE DIAGNOSIS: Right buttock abscess. PROCEDURE: Incision and drainage of right buttock abscess. SURGEON: Dr. Margie Ash. TYPE OF ANESTHESIA: General. ANESTHESIA ADMINISTERED BY: Dr. Chowdary. DESCRIPTION OF OPERATION: With the patient in the lithotomy position, under adequate general anesthesia, the right buttock was prepped and draped in the usual sterile manner. There was noted to be an area of localized swelling and fluctuance on the lower portion of the buttock with few sinus draining openings, and a cruciate incision was made slightly medial to the lower part of the buttock to allow the patient to sit postoperatively, taken down through the full thickness of skin. A moderate amount of purulent material was drained and the cavity was explored for loculations. There was some deeper induration noted, but no deeper cavity was identified on exploration. The wound area was irrigated and half-inch iodoform packing was placed followed by a dry sterile dressing. The patient tolerated the procedure well and transferred to recovery room in stable condition. ESTIMATED BLOOD LOSS FOR THE PROCEDURE: 10 mL. Margie Ash MD
[2017-12-18] MEDS: Moxifloxacin IV 400mg/250ml NS 400 MG/250 ML BAG IVPB SCH (11:22)
--- NOTE | 2017-12-18 12:30 | CP.PCM.PN ---
Subjective - Date & Time of Evaluation Date of Evaluation: 12/18/17 Time of Evaluation: 06:45 - Subjective Subjective: General Surgery- Dr. Ash Patient seen and examined at bedside this AM. No acute events overnight. Pain is controlled on current pain regiment. wound actively draining purulent material. denies F/C CP/SOB N/V/D. Objective - Vital Signs/Intake and Output Vital Signs (last 24 hours): Temp Pulse Resp BP Pulse Ox 98.0 F 77 20 103/65 99 12/18/17 04:10 12/18/17 04:10 12/18/17 04:10 12/18/17 04:10 12/18/17 04:10 Intake and Output: 12/18/17 12/18/17 06:59 18:59 Intake Total 940 Balance 940 - Medications Medications: Current Medications Moxifloxacin HCl (Avelox Iv 400mg/250ml Ns) 400 mg in 250 mls @ 167 mls/hr IVPB Q24H MYRANDA Last Admin: 12/18/17 11:22 Dose: 167 mls/hr Oxycodone/Acetaminophen (Percocet 5/325 Mg Tab) 1 tab PO Q4H PRN PRN Reason: Pain, moderate (4-7) Stop: 12/20/17 15:16 Last Admin: 12/18/17 10:18 Dose: 1 tab - Labs Labs: 12/17/17 12:13 12/17/17 12:13 PT 14.2 SECONDS (9.7-12.2) H 12/17/17 12:13 INR 1.2 12/17/17 12:13 APTT 28 SECONDS (21-34) 12/17/17 12:13 - Constitutional Appears: Non-toxic, No Acute Distress - Eye Exam Eye Exam: EOMI. absent: Scleral icterus - ENT Exam ENT Exam: Mucous Membranes Moist - Respiratory Exam Respiratory Exam: absent: Accessory Muscle Use, Respiratory Distress - Cardiovascular Exam Cardiovascular Exam: +S1, +S2. absent: Bradycardia, Tachycardia - GI/Abdominal Exam GI & Abdominal Exam: Soft. absent: Distended, Firm, Guarding, Rigid, Tenderness - Extremities Exam Additional comments: R. Inferior gluteal fold w/ purulent drainage. Dressing re-inforced - Neurological Exam Neurological Exam: Alert, Awake, Oriented x3 - Skin Skin Exam: Intact, Warm Assessment and Plan - Assessment and Plan (Free Text) Assessment: 37F s/p incision and drainage of R buttock POD1 Plan: - keep area clean and dry - packing change - Abx - plan to discharge home tomorrow - pain control PRN - discussed w/ Dr. Ash surgical attending Ronnie Clarke PGY1
[2017-12-18] MEDS ORDERED: Morphine 4 MG/ML VIAL IVP STA (22:51)
[2017-12-18] MEDS ORDERED: Moxifloxacin IV 400mg/250ml NS 400 MG/250 ML BAG IVPB SCH (23:00)
[2017-12-19 01:36] VITALS: RESP 20; O2SAT 97
[2017-12-19] MEDS: Oxycodone/Acetaminophen 5/325 mg Tab PO PRN ×2 (04:14→09:36)
[2017-12-19 08:09] VITALS: BP 115/75; PULSE 82; TEMP 97.9
--- NOTE | 2017-12-19 11:30 | CP.PCM.DIS ---
Provider - Provider Date of Admission: 12/17/17 12:04 Attending physician: Margie Ash MD Time Spent in preparation of Discharge (in minutes): 15 Diagnosis - Discharge Diagnosis (1) Abscess of buttock, right Status: Acute Onset Date: ~12/08/17 Comment: s/p incision and drainage (2) Diabetes 1.5, managed as type 2 Status: Chronic Priority: Medium Comment: continue home medications Hospital Course - Lab Results Lab Results: Most Recent Lab Values WBC 20.0 K/uL (4.8-10.8) H D 12/17/17 12:13 RBC 4.43 Mil/uL (3.80-5.20) 12/17/17 12:13 Hgb 12.6 g/dL (11.0-16.0) 12/17/17 12:13 Hct 36.6 % (34.0-47.0) 12/17/17 12:13 MCV 82.7 fL (81.0-99.0) 12/17/17 12:13 MCH 28.5 pg (27.0-31.0) 12/17/17 12:13 MCHC 34.5 g/dL (33.0-37.0) 12/17/17 12:13 RDW 12.0 % (11.5-14.5) 12/17/17 12:13 Plt Count 554 K/uL (130-400) H D 12/17/17 12:13 MPV 7.6 fL (7.2-11.7) 12/17/17 12:13 Neut % (Auto) 79.3 % (50.0-75.0) H 12/17/17 12:13 Lymph % (Auto) 12.7 % (20.0-40.0) L 12/17/17 12:13 [place] % (Auto) 6.4 % (0.0-10.0) 12/17/17 12:13 Eos % (Auto) 0.6 % (0.0-4.0) 12/17/17 12:13 Baso % (Auto) 1.0 % (0.0-2.0) 12/17/17 12:13 Neut # (Auto) 15.8 K/uL (1.8-7.0) H 12/17/17 12:13 Lymph # (Auto) 2.5 K/uL (1.0-4.3) 12/17/17 12:13 [place] # (Auto) 1.3 K/uL (0.0-0.8) H 12/17/17 12:13 Eos # (Auto) 0.1 K/uL (0.0-0.7) 12/17/17 12:13 Baso # (Auto) 0.2 K/uL (0.0-0.2) 12/17/17 12:13 PT 14.2 SECONDS (9.7-12.2) H 12/17/17 12:13 INR 1.2 12/17/17 12:13 APTT 28 SECONDS (21-34) 12/17/17 12:13 Sodium 135 mmol/L (132-148) 12/17/17 12:13 Potassium 4.1 mmol/L (3.6-5.2) 12/17/17 12:13 Chloride 95 mmol/L (98-107) L 12/17/17 12:13 Carbon Dioxide 19 mmol/L (22-30) L 12/17/17 12:13 Anion Gap 24 (10-20) H 12/17/17 12:13 BUN 8 mg/dL (7-17) 12/17/17 12:13 Creatinine 0.5 mg/dL (0.7-1.2) L 12/17/17 12:13 Est GFR ( Amer) > 60 12/17/17 12:13 Est GFR (Non-Af Amer) > 60 12/17/17 12:13 POC Glucose (mg/dL) 240 mg/dL (65-110) H 12/19/17 11:06 Random Glucose 335 mg/dL (65-105) H 12/17/17 12:13 Calcium 9.8 mg/dl (8.6-10.4) 12/17/17 12:13 Urine HCG, Qual Negative (NEGATIVE) 12/17/17 12:03 Blood Type A POSITIVE 12/17/17 12:13 Antibody Screen Negative 12/17/17 12:13 - Hospital Course Hospital Course: Incision and drainage of R buttock with decrease in pain and cellulitis. Packing removed, moderate drainage noted Discharge Exam - Head Exam Head Exam: NORMAL INSPECTION - Eye Exam Eye Exam: PERRL. absent: Scleral icterus - ENT Exam ENT Exam: Mucous Membranes Moist - Neck Exam Neck exam: Full Rom - Respiratory Exam Respiratory Exam: UNREMARKABLE - Cardiovascular Exam Cardiovascular Exam: REGULAR RHYTHM - GI/Abdominal Exam GI & Abdominal Exam: Normal Bowel Sounds, Unremarkable - Rectal Exam Additional comments: Cruciate incision medial R buttock, no surrounding cellulitis - Extremities Exam Extremities exam: full ROM, normal inspection - Neurological Exam Neurological exam: Alert, Oriented x3 Discharge Plan - Discharge Medications Prescriptions: Moxifloxacin [Avelox] 400 mg PO DAILY #7 tab oxyCODONE/Acetaminophen [Percocet 5/325 mg Tab] 1 tab PO Q4H PRN #12 tab PRN Reason: Pain, Moderate (4-7) - Follow Up Plan Condition: STABLE Disposition: HOME/ ROUTINE
[2017-12-19] MEDS: Moxifloxacin IV 400mg/250ml NS 400 MG/250 ML BAG IVPB SCH (12:00)
== END 2017-12-19 14:55 | disposition home or self-care (01) ==
LOC: C.ER 11:25 → UNDOADMIN 12:04 → C.6T 12:04 → C.9E 12:04 → INTOOBSV 12:04 → C.6T 17:50 → C.9E 17:50
PROVIDERS: ADMIT Specialist; ATTEND Specialist
DX: L02.31 Cutaneous abscess of buttock (principal); L03.90 Cellulitis, unspecified; E11.65 Type 2 diabetes mellitus with hyperglycemia; Z98.51 Tubal ligation status
CPT/HCPCS: 10060; 80048; 82948; 84703; 85025; 85610; 85730; 86850; 86900; 96365; 96372; 99285; G0378; J1170; J2250; J2270; J2280; J2405; J2704; J2765; J3010; J7040

== ENCOUNTER 2019-01-06 13:14 | Emergency (ER) | payer OTHER ==
[2019-01-06 13:14] VITALS: BMI 29.1
[2019-01-06 13:22] VITALS: BP 161/103; PULSE 79; RESP 20; TEMP 98.4; O2SAT 100
[2019-01-06] MEDS ORDERED: Naproxen 550 mg Tab PO STA (13:42)
[2019-01-06] MEDS ORDERED: Bacitracin 500 Units/gm Oint Foilpak UD ONE (13:45)
--- NOTE | 2019-01-06 14:05 | C.PDOC ---
History Of Present Illness 38 y/o female pt presents to the ER c/o right shoulder pain for several months. Pt reports pain became worse last night which prompted her to visit the ER. Pt notes pain is worse with movement especially with shoulder abduction. Pt denies trauma or injury to area, rash, fever, chest pain and SOB. 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 Time Seen by Provider: 01/06/19 13:30 Chief Complaint (Nursing): Upper Extremity Problem/Injury History Per: Patient History/Exam Limitations: no limitations Onset/Duration Of Symptoms: Days (months ) Current Symptoms Are (Timing): Still Present Past Medical History Reviewed: Historical Data, Nursing Documentation, Vital Signs Vital Signs: Last Vital Signs Temp 98.4 F 01/06/19 13:19 Pulse 79 01/06/19 13:19 Resp 20 01/06/19 13:19 BP 161/103 H 01/06/19 13:19 Pulse Ox 100 01/06/19 13:19 - Medical History PMH: Diabetes Surgical History: Family History: States: Unknown Family Hx - Social History Hx Alcohol Use: Yes Hx Substance Use: No - Immunization History Hx Tetanus Toxoid Vaccination: No Hx Influenza Vaccination: No Hx Pneumococcal Vaccination: Yes (2017) Review Of Systems Constitutional: Negative for: Fever, Other (trauma or injury ) Cardiovascular: Negative for: Chest Pain Respiratory: Negative for: Shortness of Breath Musculoskeletal: Positive for: Shoulder Pain (right ) Physical Exam - Physical Exam Appears: Non-toxic, In Acute Distress (mild pain ) Skin: Warm, Dry, No Rash Extremity: Tenderness (to right anterior shoulder at proximal humerus), Capillary Refill (<2 sec), No Deformity, No Swelling, Other (pain worse with abduction ) Pulses: Right Radial: Normal Neurological/Psych: Oriented x3, Normal Speech, Normal Cognition, Normal Motor, Normal Sensation ED Course And Treatment O2 Sat by Pulse Oximetry: 100 (RA) Pulse Ox Interpretation: Normal - Other Rad right shoulder X-Ray: Read By Radiologist Interpretation: Accession No. : [id number]. Patient Name / ID : SARAH LOWE RID / [id number]. Exam Date : 01/06/2019 13:45:50 ( Approved ). Study Comment : Sex / Age : F / 38Y. Creator : Josephine Maza MD. Dictator : Josephine Maza MD. Prep Person : Parts Facilitator : Josephine Maza MD. Approver2 : Report Date : 01/06/2019 14:36:44. My Comment : . PROCEDURE: Radiographs of the Right Shoulder. HISTORY: RIGHT SHOULDER PAIN. COMPARISON: None available. FINDINGS: BONES: No acute displaced fracture. The distal clavicle and underlying ribs appear intact. JOINTS: No acute dislocation. SOFT TISSUES: Soft tissues appear unremarkable. No evidence of radiopaque foreign body. IMPRESSION: No acute displaced fracture or dislocation evident. If symptoms persist or if there is continued clinical concern, x-ray follow-up in 7-10 days should be considered. Progress Note: Plans: -- right shoulder XR. -- naproxen. -- flexeril. -- Pt was given an arm sling and instructed to f/u with orthopedics in 1-2 days Disposition Counseled Patient/Family Regarding: Diagnosis, Need For Followup, Rx Given - Disposition Referrals: Gabino Patterson III, MD [Staff Provider] - Disposition: HOME/ ROUTINE Disposition Time: 14:10 Condition: STABLE Additional Instructions: FOLLOW UP WITH ORTHOPEDICS WITHIN 1 WEEK USE MEDICATIONS NEEDED RETURN TO EMERGENCY ROOM IF SYMPTOMS WORSEN SEGUIR CON ORTOPEDIA EN CARMELA SEMANA UTILICE MEDICAMENTOS HILARIA SE NECESITE VUELVA A LA PATTI DE EMERGENCIA SI LOS SNTOMAS SE IGNACIO PROBLEMAS Prescriptions: Cyclobenzaprine [Flexeril] 10 mg PO BID PRN #15 tab PRN Reason: Muscle Spasm Naproxen 375 mg PO BID PRN #20 tablet PRN Reason: pain Instructions: Tendonitis (DC) Forms: [facility] (Senegalese), Work Excuse Print Language: TONGAN - Clinical Impression Clinical Impression: Right shoulder tendinitis - Scribe Statement The provider has reviewed the documentation as recorded by the Scribe Sharpe Do Provider Attestation: All medical record entries made by the Scribe were at my direction and personally dictated by me. I have reviewed the chart and agree that the record accurately reflects my personal performance of the history, physical exam, medical decision making, and the department course for this patient. I have also personally directed, reviewed, and agree with the discharge instructions and disposition.
[2019-01-06] MEDS ORDERED: Naproxen 550 mg Tab PO ONE (14:08)
--- NOTE | 2019-01-06 14:40 | RAD ---
PROCEDURE: Radiographs of the Right Shoulder HISTORY: RIGHT SHOULDER PAIN COMPARISON: None available. FINDINGS: BONES: No acute displaced fracture. The distal clavicle and underlying ribs appear intact. JOINTS: No acute dislocation. SOFT TISSUES: Soft tissues appear unremarkable. No evidence of radiopaque foreign body. IMPRESSION: No acute displaced fracture or dislocation evident. If symptoms persist or if there is continued clinical concern, x-ray follow-up in 7-10 days should be considered.
== END 2019-01-06 14:15 | disposition home or self-care (01) ==
LOC: C.ER 13:14
DX: M75.91 Shoulder lesion, unspecified, right shoulder (principal)